=== PATIENT | female | born 1975 | race Two or more races ===

== ENCOUNTER → 2019-09-19 | Outpatient (CLI) | payer OTHER | END | disposition home or self-care (01) | LOC: CFH 08:04 | PROVIDERS: ATTEND Family Medicine | DX: D48.61 Neoplasm of uncertain behavior of right breast (principal); Z80.3 Family history of malignant neoplasm of breast | CPT/HCPCS: 76642; 77066 ==

== ENCOUNTER 2020-06-14 15:35 | Emergency (ER) | payer OTHER ==
[~2020-06-14] VITALS: Ht 154.9 cm; Wt 87.6 kg
[2020-06-14] MEDS ORDERED: SODIUM CHLORIDE FLUSH 10ML SYR IVF ONE (17:00)
[2020-06-14 17:38] LABS: BASOPHILS # (AUTO) 0.02 x10^3/uL (0-0.1); BASOPHILS % (AUTO) 0 % (0-1); EOSINOPHILS % (AUTO) 1 % (1-7); LYMPHOCYTES # (AUTO) 2.34 x10^3/uL (1-3.4); LYMPHOCYTES % (AUTO) 25 % (22-44); MD NO; MEAN CORPUSCULAR HEMOGLOBIN 29.2 pg (27.0-34.8); MEAN CORPUSCULAR HGB CONC 33.3 g/dL (32.4-35.8); MEAN PLATELET VOLUME 7.1 fL (7.4-10.4); MONOCYTES # (AUTO) 0.43 x10^3/uL (0.2-0.8); MONOCYTES % (AUTO) 5 % (2-9); NEUTROPHILS # (AUTO) 6.31 x10^3/uL (1.8-6.8); NEUTROPHILS % (AUTO) 69 % (42-75); PLATELET COUNT 312 x10^3/uL (130-400); RED BLOOD COUNT 5.15 x10^6/uL (3.82-5.3); RED CELL DISTRIBUTION WIDTH 14.6 % (9.6-15.2)
[2020-06-14 17:56] LABS: ANION GAP 8 mmol/L (5-15); CALCIUM 8.8 mg/dL (8.5-10.1); CHLORIDE 105 mmol/L (98-107); CREATININE 0.89 mg/dL (0.55-1.02)
[2020-06-14 18:08] LABS: ALBUMIN 3.6 g/dL (3.4-5.0)
--- NOTE | 2020-06-14 19:00 | NUR ---
ASSUMED CARE OF PT AT THIS TIME.
--- NOTE | 2020-06-14 19:08 | NUR ---
CHART UP FOR MD RECHECK. PT AWARE.
[2020-06-14] MEDS ORDERED: DEXAMETHASONE 4 MG/ML, 5ML IVPush ONE (19:30)
[2020-06-14] MEDS ORDERED: DEXAMETHASONE 4 MG/ML, 5ML ONE (19:50)
[2020-06-14 20:10] VITALS: BP 153/96
[2020-06-14] MEDS ORDERED: OMNIPAQUE 350 MG/ML, 100ML BOTTLE ONE (20:53)
== END 2020-06-14 20:12 | disposition home or self-care (01) ==
LOC: ED 16:09
DX: J03.80 Acute tonsillitis due to other specified organisms (principal); B95.8 Unspecified staphylococcus as the cause of diseases classified elsewhere; H92.01 Otalgia, right ear
CPT/HCPCS: 36415; 70491; 80048; 82040; 84703; 85025; 96374; 99285; J1100; Q9967